=== PATIENT | male | born 1945 | race Caucasian/White ===

== ENCOUNTER 2017-05-26 21:23 | Emergency (ER) | payer MEDICAID ==
[2017-05-26 21:35] VITALS: TEMP 97.9; O2SAT 98
[2017-05-26] MEDS ORDERED: Tetracaine 0.5% Ophth (OR ONLY) ONE (22:03)
[2017-05-26] MEDS ORDERED: Fluorescein 1 mg Ophthalmic Strip ONE (22:03)
[2017-05-26] MEDS ORDERED: Tobramycin 0.3% OPH OINT ONE (22:31)
--- NOTE | 2017-05-26 22:32 | C.PDOC ---
History Of Present Illness Pt c/oo of discomfort, irritation and redness to right eye after accidentally poking eye with the corner of an envelope. Pt denies eye pain, tearing, decrease vision, headache, dizziness Time Seen by Provider: 05/26/17 21:45 Chief Complaint (Nursing): Eye Problem History Per: Patient History/Exam Limitations: no limitations Current Symptoms Are (Timing): Still Present Injury To Eye?: Yes Severity: Mild Wears Contact Lens?: No Associated Symptoms: Other (irritation) Recent travel outside of the [place]: No Past Medical History Vital Signs: Last Vital Signs Temp 97.9 F 05/26/17 21:31 Pulse 78 05/26/17 22:41 Resp 20 05/26/17 22:41 BP 169/84 H 05/26/17 22:41 Pulse Ox 98 05/26/17 22:34 - Medical History PMH: HTN Family History: States: Unknown Family Hx - Social History Hx Alcohol Use: No Hx Substance Use: No - Immunization History Hx Tetanus Toxoid Vaccination: No Hx Influenza Vaccination: Yes Hx Pneumococcal Vaccination: Yes Review Of Systems Constitutional: Negative for: Fever Eyes: Positive for: Redness (right eye), Other (injury to right eye). Negative for: Pain, Vision Change Neurological: Negative for: Headache, Dizziness Physical Exam - Physical Exam Appears: Well Head: Atraumatic Eye(s): right: Other (subconjunctival hemorrhage with abrasion to lateral right conjunctiva ext into the cornea, no swelling) Neurological/Psych: Oriented x3, Normal Cognition ED Course And Treatment O2 Sat by Pulse Oximetry: 98 Progress Note: Tobrex oint applied OD and given to pt to continue home. Pt advised to follow up with Ophto. Pt and relatives understand all return precautions Disposition Counseled Patient/Family Regarding: Diagnosis, Need For Followup - Disposition Referrals: Connor Adams [Staff Provider] - Disposition: HOME/ ROUTINE Disposition Time: 22:30 Condition: STABLE Additional Instructions: Please follow up with Eye doctor Apply ointment 2-3 times daily Return to ER if worse Instructions: Subconjunctival Hemorrhage (ED), Corneal Abrasion (ED) Forms: [employer] (Finnish) - Clinical Impression Clinical Impression: Subconjunctival hemorrhage of right eye, Corneal abrasion, right
[2017-05-26 22:42] VITALS: RESP 20
[2017-05-26 22:52] VITALS: BP 169/84; PULSE 78
== END 2017-05-26 22:41 | disposition home or self-care (01) ==
LOC: C.ER 21:23
DX: H11.31 Conjunctival hemorrhage, right eye (principal); S05.01XA Injury of conjunctiva and corneal abrasion without foreign body, right eye, initial encounter; W22.8XXA Striking against or struck by other objects, initial encounter; I10 Essential (primary) hypertension